=== PATIENT | male | born 1965 | race Caucasian/White ===

== ENCOUNTER 2016-09-06 14:49 | Emergency (ER) | payer OTHER ==
[2016-09-06] MEDS ORDERED: ASPIRIN 81 MG CHEWABLE TABLETS PO ONE (14:55)
[2016-09-06 14:58] VITALS: TEMP 98; BMI 38.4
[2016-09-06] MEDS ORDERED: SODIUM CHLORIDE 1,000 ML IV SCH (15:00)
[2016-09-06] MEDS ORDERED: morphine CARPU-JECT 4 MG/1 ML DISP.SYRIN IVPUSH ONE ×3 (15:03→16:14)
[2016-09-06] MEDS ORDERED: ONDANSETRON 4 MG/2 ML VIAL IVPUSH ONE ×2 (15:03→17:43)
--- NOTE | 2016-09-06 15:18 | PDOC ---
[id number] 51 year old male with significant medical hx of HTN and HLD who is presenting to the ED vis EMS with intermittent chest pain and diaphoresis for two days. The patient complains of substernal chest pain with radiation down both arms and associated diaphoresis. The patient states hes had chest pain intermittently for the past two days and had a sudden onset while driving today. He pulled over and called EMS. Denies fever, chills, nausea, vomiting, shortness of breath. Patient was also seen in the ED on for intermittent chest pain. Social Hx: Denies tobacco, alcohol, and recreational drug use. <Lori Gutiérrez - Last Filed: 09/06/16 17:08> <Dante Matamoros - Last Filed: 11/13/16 10:23> - General Chief Complaint: Chest Pain Stated Complaint: CHEST PAIN Time Seen by Provider: 09/06/16 14:55 Past History <Lori Gutiérrez - Last Filed: 09/06/16 17:08> - Past Medical History Diabetes: Yes HTN: Yes - Psycho/Social/Smoking Cessation Hx Suicidal Ideation: No Smoking History: Never smoked Have you smoked in the past 12 months: No Hx Alcohol Use: No Drug/Substance Use Hx: No <Dante Matamoros - Last Filed: 11/13/16 10:23> - Past Medical History Allergies/Adverse Reactions: Allergies Allergy/AdvReac Type Severity Reaction Status Date / Time No Known Allergies Allergy Verified 11/13/15 23:09 Home Medications: Ambulatory Orders Pantoprazole Sodium [Protonix] 40 mg PO DAILY #30 tablet. 09/06/16 Review of Systems - Review of Systems Comments:: 09/06/16 15:22 GENERAL/CONSTITUTIONAL: Diaphoresis. No fever or chills. No weakness. HEAD, EYES, EARS, NOSE AND THROAT: No change in vision. No ear pain or discharge. No sore throat. CARDIOVASCULAR: Chest pain. No shortness of breath. RESPIRATORY: No cough, wheezing, or hemoptysis. GASTROINTESTINAL: No nausea, vomiting, diarrhea or constipation. GENITOURINARY: No dysuria, frequency, or change in urination. MUSCULOSKELETAL: No joint or muscle swelling or pain. No neck or back pain. SKIN: No rash NEUROLOGIC: No headache, vertigo, loss of consciousness, or change in strength/ sensation. <Lori Gutiérrez - Last Filed: 09/06/16 17:08> *Physical Exam - Vital Signs Last Vital Signs Temp Pulse Resp BP Pulse Ox 98.0 F 78 20 113/65 99 09/06/16 14:54 09/06/16 14:54 09/06/16 14:54 09/06/16 14:54 09/06/16 14:54 - Physical Exam Comments: 09/06/16 15:23 GENERAL: Morbidly obese, diaphoresis. Awake, alert, and fully oriented, in mild distress HEAD: No signs of trauma EYES: PERRLA, EOMI, sclera anicteric, conjunctiva clear ENT: Auricles normal inspection, hearing grossly normal, nares patent, oropharynx clear without exudates. Moist mucosa NECK: Normal ROM, supple, no lymphadenopathy, JVD, or masses LUNGS: Breath sounds equal, clear to auscultation bilaterally. No wheezes, and no crackles HEART: Regular rate and rhythm, normal S1 and S2, no murmurs, rubs or gallops ABDOMEN: Soft, abdomen distended, nontender, normoactive bowel sounds. No guarding, no rebound. No masses EXTREMITIES: Normal range of motion, no edema. No clubbing or cyanosis. No cords, erythema, or tenderness NEUROLOGICAL: Cranial nerves II through XII grossly intact. Normal speech, normal gait SKIN: Warm, Dry, normal turgor, no rashes or lesions noted. ENDOCRINE: No increased thirst. No abnormal weight change. HEMATOLOGIC/LYMPHATIC: No anemia, easy bleeding, or history of blood clots. ALLERGIC/IMMUNOLOGIC: No hives or skin allergy. <Lori Gutiérrez - Last Filed: 09/06/16 17:08> - Vital Signs Last Vital Signs Temp Pulse Resp BP Pulse Ox 98.0 F 78 20 113/65 99 09/06/16 14:54 09/06/16 14:54 09/06/16 14:54 09/06/16 14:54 09/06/16 14:54 <Dante Matamoros - Last Filed: 11/13/16 10:23> Heart Score/ECG Review #1 09/06/16 15:26 Normal sinus rhythm at 72 bpm Nonspecific T wave abnormality Abnormal ECG #2 09/06/16 17:09 Poor data quality, interpretation may be adversely affected Sinus rhythm at 86 bpm with frequent premature ventricular complexes Nonspecific intraventricular block T wave abnormality, consider lateral ischemia Abnormal ECG <Lori Gutiérrez - Last Filed: 09/06/16 17:08> ED Treatment Course - LABORATORY CBC & Chemistry Diagram: 09/06/16 15:15 09/06/16 15:15 <Lori Gutiérrez - Last Filed: 09/06/16 17:08> - LABORATORY CBC & Chemistry Diagram: 09/06/16 15:15 09/06/16 16:38 - RADIOLOGY Radiology Studies Ordered: Category Date Time Status CHEST PA & LAT [RAD] Stat Radiology 09/06/16 14:55 Ordered <Dante Matamoros - Last Filed: 11/13/16 10:23> *DC/Admit/Observation/Transfer - Attestations Scribe Attestion: 09/06/16 15:25 Documentation prepared by Lori Gutiérrez, acting as medical practice assistant for Dante Matamoros MD. <Lori Gutiérrez - Last Filed: 09/06/16 17:08> - Attestations Physician Attestion: 09/06/16 15:18 I, Dr. Dante Matamoros, attest that this document has been prepared under my direction and personally reviewed by me in its entirety. I further attest, that it accurately reflects all work, treatment, procedures and medical decision -making performed by me. <Dante Matamoros - Last Filed: 11/13/16 10:23> Diagnosis at time of Disposition: Epigastric abdominal pain - Discharge Dispostion Disposition: HOME Condition at time of disposition: Stable - Prescriptions Prescriptions: Pantoprazole Sodium [Protonix] 40 mg PO DAILY #30 tablet.dr - Referrals Referrals: STAFF,NOT ON [Primary Care Provider] - - Patient Instructions Printed Discharge Instructions: DI for Epigastric Pain
[2016-09-06] MEDS ORDERED: morphine CARPU-JECT 4 MG/1 ML DISP.SYRIN ONE ×2 (15:24→15:48)
[2016-09-06] MEDS ORDERED: ONDANSETRON 4 MG/2 ML VIAL ONE ×2 (15:24→17:56)
[2016-09-06 15:33] LABS: BASOPHIL 0.9 % (0-2.0); EOSINOPHIL 2.5 % (0-4.5); MCHC 33.8 g/dl (32.0-35.9); MEAN CELL VOLUME 85.8 fl (80-96); NEUTROPHILS 52.9 % (42.8-82.8); PLATELET COUNT 298 K/MM3 (134-434); RDW 13.7 % (11.9-15.9); WHITE BLOOD COUNT 15.1 K/mm3 (4.0-10.0)
[2016-09-06] MEDS ORDERED: NITROGLYCERIN SUBLINGUAL 1/150 0.4 MG TAB SL ONE (15:43)
[2016-09-06] MEDS ORDERED: NITROGLYCERIN SUBLINGUAL 1/150 0.4 MG TAB ONE ×2 (15:48→15:49)
[2016-09-06 16:09] LABS: INR 1.04 (0.82-1.09); PROTHROMBIN TIME (PATIENT) 11.4 SEC (9.98-11.88)
[2016-09-06] MEDS ORDERED: NITROGLYCERIN 25MG/D5W 250ML 250 ML IVPB SCH (16:15)
--- NOTE | 2016-09-06 16:21 | EKG ---
Test Reason : Blood Pressure : / mmHG Vent. Rate : 072 BPM Atrial Rate : 072 BPM P-R Int : 196 ms QRS Dur : 106 ms QT Int : 390 ms P-R-T Axes : 047 -29 090 degrees QTc Int : 427 ms NORMAL SINUS RHYTHM NONSPECIFIC T WAVE ABNORMALITY ABNORMAL ECG WHEN COMPARED WITH ECG OF 13-NOV-2015 23:38, NONSPECIFIC T WAVE ABNORMALITY NOW EVIDENT IN ANTEROLATERAL LEADS Confirmed by LUTHER LOTT, YESIKA ([id number]) on 09/06/2016 4:21:24 PM Referred By: Confirmed By:YESIKA SLOAN MD
[2016-09-06] MEDS ORDERED: NITROGLYCERIN 25MG/D5W 250ML 250 ML IVPB ONE (16:33)
[2016-09-06] MEDS ORDERED: LIDOCAINE VISCOUS 2% ORAL/TOP 20 ML UNIT-DOSE CUP MM ONE (16:58)
[2016-09-06] MEDS ORDERED: MAG HYDROX/AL HYDROX/SIMETH 30 ML UNIT-DOSE CUP PO ONE (16:58)
[2016-09-06] MEDS ORDERED: diphenhydrAMINE HCL 12.5 MG/5 ML UNIT-DOSE CUPS PO ONE (16:58)
[2016-09-06] MEDS ORDERED: diphenhydrAMINE HCL 25 MG CAPSULE (FP) PO ONE (17:05)
[2016-09-06] MEDS ORDERED: MAG HYDROX/AL HYDROX/SIMETH 30 ML UNIT-DOSE CUP ONE (17:05)
[2016-09-06 17:11] LABS: ALBUMIN 3.6 g/dl (3.4-5.0); BILIRUBIN,TOTAL 0.7 mg/dL (0.2-1.0); CREATININE 1.3 mg/dL (0.7-1.3); TOT PROT 7.1 g/dl (6.4-8.2)
[2016-09-06 17:14] LABS: TROPONIN I 0.02 ng/ml (0.00-0.05)
[2016-09-06] MEDS ORDERED: HYDROmorphone HCL CARPU-JECT 1 MG/1 ML DISP.SYRIN IVPUSH ONE (17:42)
[2016-09-06] MEDS ORDERED: HYDROmorphone HCL CARPU-JECT 1 MG/1 ML DISP.SYRIN ONE (17:56)
[2016-09-06] MEDS ORDERED: PANTOPRAZOLE SODIUM 40 MG in SODIUM CHLORIDE 100 ML IVPB ONE (20:13)
[2016-09-06] MEDS ORDERED: PANTOPRAZOLE 40 MG TABLET (FP) PO ONE (20:48)
--- NOTE | 2016-09-06 20:52 | PDOC ---
*Physical Exam - Vital Signs Last Vital Signs Temp Pulse Resp BP Pulse Ox 98.0 F 88 21 137/88 100 09/06/16 14:54 09/06/16 17:03 09/06/16 17:03 09/06/16 17:03 09/06/16 17:03 ED Treatment Course - LABORATORY CBC & Chemistry Diagram: 09/06/16 15:15 09/06/16 16:38 - ADDITIONAL ORDERS Additional order review: Laboratory Results 09/06/16 09/06/16 09/06/16 16:55 16:38 15:15 INR D-Dimer Sodium 138 Cancelled Potassium 3.9 Cancelled Chloride 100 Cancelled Carbon Dioxide 23 D Cancelled Anion Gap 15 Cancelled BUN 15 Cancelled Creatinine 1.3 D Cancelled Creat Clearance w eGFR 57.97 Cancelled Random Glucose 382 H* D Cancelled Calcium 10.0 Cancelled Magnesium Cancelled Total Bilirubin 0.7 Cancelled AST 35 Cancelled ALT 40 Cancelled Alkaline Phosphatase 135 H Cancelled Creatine Kinase 61 Cancelled Troponin I 0.02 Cancelled B-Natriuretic Peptide Cancelled Total Protein 7.1 Cancelled Albumin 3.6 Cancelled Lipase 201 09/06/16 09/06/16 15:15 15:00 INR 1.04 D-Dimer < 200 Sodium Potassium Chloride Carbon Dioxide Anion Gap BUN Creatinine Creat Clearance w eGFR Random Glucose Calcium Magnesium Total Bilirubin AST ALT Alkaline Phosphatase Creatine Kinase Troponin I B-Natriuretic Peptide Total Protein Albumin Lipase 09/06/16 15:15 RBC 6.16 H MCV 85.8 MCHC 33.8 RDW 13.7 MPV 9.0 Neutrophils % 52.9 D Lymphocytes % 35.9 D Monocytes % 7.8 Eosinophils % 2.5 Basophils % 0.9 - Medications Given in the ED: ED Medications Discontinued Medications Generic Name Dose Route Start Last Admin Trade Name Freq PRN Reason Stop Dose Admin Al Hydroxide/Mg Hydroxide 30 ml 09/06/16 16:58 09/06/16 17:05 Mylanta Oral Suspension - PO 09/06/16 16:59 30 ml ONCE ONE Administration Aspirin 162 mg 09/06/16 14:55 09/06/16 14:55 Asa - PO 09/06/16 14:56 162 mg ONCE ONE Administration Diphenhydramine HCl 25 mg 09/06/16 16:58 09/06/16 17:05 Benadryl Oral Solution - PO 09/06/16 16:59 25 mg ONCE ONE Administration Hydromorphone HCl 1 mg 09/06/16 17:42 09/06/16 18:04 Dilaudid Injection - IVPUSH 09/06/16 17:43 1 mg ONCE ONE Administration Nitroglycerin/Dextrose 250 mls @ 6 mls/hr 09/06/16 16:15 09/06/16 17:02 Nitroglycerin 25mg/D5w 250ml IVPB 10 mcg/min TITR SHIRA Titration 10 MCG/MIN Lidocaine HCl 60 ml 09/06/16 16:58 09/06/16 17:05 Xylocaine 2% Viscous Oral - MM 09/06/16 16:59 60 ml ONCE ONE Administration Morphine Sulfate 4 mg 09/06/16 15:03 09/06/16 15:30 Morphine Injection - IVPUSH 09/06/16 15:04 4 mg ONCE ONE Administration Morphine Sulfate 4 mg 09/06/16 15:43 09/06/16 15:55 Morphine Injection - IVPUSH 09/06/16 15:44 4 mg ONCE ONE Administration Nitroglycerin 0.4 mg 09/06/16 15:43 09/06/16 15:55 Nitrostat - SL 09/06/16 15:44 0.4 mg ONCE ONE Administration Ondansetron HCl 4 mg 09/06/16 15:03 09/06/16 15:30 Zofran Injection IVPUSH 09/06/16 15:04 4 mg ONCE ONE Administration Ondansetron HCl 4 mg 09/06/16 17:43 09/06/16 18:04 Zofran Injection IVPUSH 09/06/16 17:44 4 mg ONCE ONE Administration Medical Decision Making - Medical Decision Making 09/06/16 20:49 all studies return to be negative. Pt is hemodynamically stable. Pt advised to follow with his pcp. continue his medications *DC/Admit/Observation/Transfer Diagnosis at time of Disposition: Epigastric abdominal pain - Discharge Dispostion Disposition: HOME Condition at time of disposition: Stable Admit: No - Referrals Referrals: STAFF,NOT ON [Primary Care Provider] - - Patient Instructions Printed Discharge Instructions: DI for Epigastric Pain - Post Discharge Activity
[2016-09-06] MEDS ORDERED: PANTOPRAZOLE 40 MG TABLET (FP) ONE (20:58)
[2016-09-06 23:08] VITALS: BP 116/69; PULSE 78
--- NOTE | 2016-09-11 15:27 | EKG ---
Test Reason : Blood Pressure : / mmHG Vent. Rate : 086 BPM Atrial Rate : 086 BPM P-R Int : 198 ms QRS Dur : 130 ms QT Int : 336 ms P-R-T Axes : 061 -02 093 degrees QTc Int : 402 ms SINUS RHYTHM WITH FREQUENT PREMATURE VENTRICULAR COMPLEXES NON-SPECIFIC INTRA-VENTRICULAR CONDUCTION BLOCK T WAVE ABNORMALITY, CONSIDER LATERAL ISCHEMIA ABNORMAL ECG WHEN COMPARED WITH ECG OF 06-SEP-2016 14:52, PREMATURE VENTRICULAR COMPLEXES ARE NOW PRESENT Confirmed by MIRANDA OLIVAREZ MD ([id number]) on 09/11/2016 3:27:04 PM Referred By: Confirmed By:MIRANDA OLIVAREZ MD
== END 2016-09-06 21:05 | disposition home or self-care (01) ==
LOC: JER 14:49
PROC: 3E033NZ Introduction of Analgesics, Hypnotics, Sedatives into Peripheral Vein, Percutaneous Approach (ICD-10-PCS; principal; 2016-09-06)
PROC: 3E033GC Introduction of Other Therapeutic Substance into Peripheral Vein, Percutaneous Approach (ICD-10-PCS; 2016-09-06)
DX: R10.13 Epigastric pain (principal); E11.9 Type 2 diabetes mellitus without complications; E78.00 Pure hypercholesterolemia, unspecified
CPT/HCPCS: 36415; 71275-TC; 74175-TC; 76705-TC; 80053; 82550; 83690; 84484; 85025; 85379; 85610; 93005; 93010; 99285-25